=== PATIENT | male | born 1980 ===

== ENCOUNTER 2017-03-08 19:49 | Emergency (ER) | payer SELFPAY ==
[2017-03-08 20:31] VITALS: BP 120/70; PULSE 69; RESP 18; TEMP 97.1; O2SAT 96
[2017-03-08] MEDS: Iohexol 240 (50 ml) PO ONE (21:24)
[2017-03-08 21:34] LABS: BASO % 0.5 % (0.0-2.0); EOS # 0.1 K/uL (0.0-0.7); EOS % 1.4 % (0.0-4.0); HEMATOCRIT 47.2 % (35.0-51.0); LYMPH # 4.1 K/uL (1.0-4.3); LYMPH % 42.1 % (20.0-40.0); MEAN CELL VOLUME 86.5 fl (80.0-94.0); MEAN CORPUSCULAR HEMOGLOBIN 29.5 pg (27.0-31.0); MEAN CORPUSCULAR HGB CONC 34.1 g/dL (33.0-37.0); MEAN PLATELET VOLUME 7.1 fl (7.2-11.7); MONO # 0.9 K/uL (0.0-0.8); MONO % 9.4 % (0.0-10.0); NEUT # 4.5 K/uL (1.8-7.0); NEUT % 46.6 % (50.0-75.0); NRBC % 0.2 % (0.0-0.0); RED CELL DISTRIBUTION WIDTH 12.6 % (11.5-14.5); WHITE BLOOD COUNT 9.7 K/uL (4.8-10.8)
[2017-03-08 21:54] LABS: ALKALINE PHOSPHATASE 79 U/L (38-126); ALT/SGPT 81 U/L (21-72); AST/SGOT 49 U/L (17-59); BILIRUBIN,TOTAL 0.5 mg/dl (0.2-1.3); BLOOD UREA NITROGEN 10 mg/dl (9-20); CALCIUM 9.4 mg/dL (8.4-10.2); CARBON DIOXIDE 26 mmol/L (22-30); CHLORIDE 104 mmol/L (98-107); GFR AFRICAN-AMERICAN > 60; GLUCOSE,RANDOM 100 mg/dL (75-110); LIPASE 74 U/L (23-300); POTASSIUM 3.7 MMOL/L (3.6-5.0); SODIUM 143 mmol/l (132-148); TOTAL PROTEIN 8.5 G/DL (6.3-8.2)
[2017-03-08 21:55] LABS: ALB/GLOB RATIO 1.4 (1.0-2.1)
--- NOTE | 2017-03-08 22:27 | ED PDOC ---
HPI: Abdomen Time Seen by Provider: 03/08/17 20:39 Chief Complaint (Nursing): Abdominal Pain Chief Complaint (Provider): Abdominal Pain History Per: Patient History/Exam Limitations: no limitations Additional Complaint(s): 36 y/o male presents to the emergency department with a complaint of a right- sided abdominal pain for two weeks. Associated with decreased liquid and solid intake by mouth, and mild diarrhea. Reports he saw Dr. Corona a week ago who prescribed him Reglan and Pepcid with no improvement of symptoms. Denies vomiting, constipation, black or bloody stools, fever, chills, urinary symptoms , or radiation of pain elsewhere. Past Medical History Reviewed: Historical Data, Nursing Documentation, Vital Signs Vital Signs: Last Vital Signs Temp 97.1 F L 03/08/17 20:29 Pulse 69 03/08/17 20:29 Resp 18 03/08/17 20:29 BP 120/70 03/08/17 20:29 Pulse Ox 96 03/09/17 04:16 - Medical History PMH: No Chronic Diseases - Surgical History Surgical History: No Surg Hx - Family History Family History: States: Hypertension - Social History Current smoker - smoking cessation education provided: No Alcohol: None Drugs: Denies - Home Medications Home Medications: Ambulatory Orders Medication Instructions Recorded Metoclopramide [Reglan] 1 tab PO BID 03/08/17 Ranitidine HCl [Zantac] 1 tab PO BID 03/08/17 Docusate Sodium [Colace] 100 mg PO BID PRN #10 capsule 03/09/17 - Allergies Allergies/Adverse Reactions: Allergies Allergy/AdvReac Type Severity Reaction Status Date / Time No Known Allergies Allergy Unverified 03/08/17 18:02 Review of Systems ROS Statement: Except As Marked, All Systems Reviewed And Found Negative (As per HPI otherwise negative) Constitutional: Positive for: Other (Decreased liquid and solid intake by mouth) . Negative for: Fever, Chills Gastrointestinal: Positive for: Abdominal Pain (Right-sided), Diarrhea (Mild). Negative for: Vomiting, Constipation, Melena, Hematochezia Genitourinary Male: Negative for: Dysuria, Frequency, Incontinence, Hematuria Physical Exam - Reviewed Nursing Documentation Reviewed: Yes Vital Signs Reviewed: Yes - Physical Exam Appears: Positive for: Non-toxic, In Acute Distress Head Exam: Positive for: ATRAUMATIC, NORMOCEPHALIC Skin: Positive for: Warm, Dry Eye Exam: Positive for: EOMI, PERRL. Negative for: Scleral icterus ENT: Negative for: Pharyngeal Erythema, Tonsillar Exudate Neck: Positive for: Painless ROM, Supple Cardiovascular/Chest: Positive for: Regular Rate, Rhythm, Chest Non Tender. Negative for: Murmur Respiratory: Positive for: Normal Breath Sounds. Negative for: Wheezing Gastrointestinal/Abdominal: Positive for: Bowel Sounds, Soft, Tenderness (RIGHT sided abdominal tenderness at level of umbilicus). Negative for: Mass, Distended, Guarding, Rebound Back: Positive for: Normal Inspection. Negative for: Muscle Spasm Extremity: Positive for: Normal ROM. Negative for: Deformity Lymphatic: Negative for: Adenopathy Neurologic/Psych: Positive for: Alert. Negative for: Motor/Sensory Deficits - Laboratory Results Result Diagrams: 03/08/17 21:27 03/08/17 21:27 - ECG O2 Sat by Pulse Oximetry: 96 (RA) Pulse Ox Interpretation: Normal Medical Decision Making Medical Decision Making: Time: 2106 Initial impression: Right sided abdominal pain. Differential includes appendicitis, colitis, mesenteric adenitis, pancreatitis, and hepatitis Initial plan: --Abd Pelvis PO & IV Contrast T --Urine DIP --Dextrose 1L IV --Iohexol 50 ml --Reevaluation Scribe Attestation: Documented by Marsha Cheema, acting as a scribe for Dayna Dee MD. Provider Scribe Attestation: All medical record entries made by the Scribe were at my direction and personally dictated by me. I have reviewed the chart and agree that the record accurately reflects my personal performance of the history, physical exam, medical decision making, and the department course for this patient. I have also personally directed, reviewed, and agree with the discharge instructions and disposition. Disposition - Clinical Impression Clinical Impression: Abdominal pain - Disposition Disposition: Transfer of Care Disposition Time: 00:00 Condition: IMPROVED Additional Instructions: follow up with your primary doctor in 1-2 days return to the ED with any worsening or concerning symptoms Prescriptions: Docusate Sodium [Colace] 100 mg PO BID PRN #10 capsule PRN Reason: Constipation Print Language: SENEGALESE Patient Signed Over To: Kingsley Johnson Y Handoff Comments: Pending ER workup, reassessment and final ER disposition
[2017-03-08] MEDS ORDERED: Iohexol 300 100 ML IJ ONE (23:31)
[2017-03-08] MEDS ORDERED: Sodium Chloride 0.9% 50 ML IV ONE (23:31)
--- NOTE | 2017-03-09 00:06 | ED PDOC ---
- Laboratory Results Result Diagrams: 03/08/17 21:27 03/08/17 21:27 - ECG O2 Sat by Pulse Oximetry: 96 (RA) Medical Decision Making Medical Decision Makin Patient signed out to me from Dr. Dee pending CT. 0028 [address] FINDINGS Lower thorax: No acute findings. ABDOMEN: Liver: Unremarkable. No mass. Gallbladder and bile ducts: Unremarkable. No calcified stones. No ductal dilation. Pancreas: Unremarkable. No mass. No ductal dilation. Spleen: Unremarkable. No splenomegaly. Adrenals: Unremarkable. No mass. Kidneys and ureters: Unremarkable. No solid mass. No hydronephrosis. Stomach and bowel: Moderate fecal retention in the colon consistent with constipation. No obstruction. No mucosal thickening. Appendix: Normal appendix. PELVIS: Bladder: Unremarkable. No mass. Reproductive: Unremarkable as visualized. ABDOMEN and PELVIS: Intraperitoneal space: Unremarkable. No free air. No significant fluid collection. Bones/joints: No acute fracture. No dislocation. Soft tissues: Unremarkable. Vasculature: Unremarkable. No abdominal aortic aneurysm. Lymph nodes: Unremarkable. No enlarged lymph nodes. IMPRESSION: Moderate fecal retention in the colon consistent with constipation. pt made aware of results and given rx colase and instructed to follow up [facility] pcp Scribe Attestation: Documented by Any Gooden acting as a scribe for Kingsley Johnson MD. Scribe Attestation: All medical record entries made by the Scribe were at my direction and personally dictated by me. I have reviewed the chart and agree that the record accurately reflects my personal performance of the history, physical exam, medical decision making, and the department course for this patient. I have also personally directed, reviewed, and agree with the discharge instructions and disposition. Disposition Counseled Patient/Family Regarding: Studies Performed, Diagnosis, Need For Followup - Clinical Impression Clinical Impression: Constipation - POA Present On Arrival: None - Disposition Disposition: Routine/Home Disposition Time: 01:00 Condition: IMPROVED Additional Instructions: follow up with your primary doctor in 1-2 days return to the ED with any worsening or concerning symptoms Prescriptions: Docusate Sodium [Colace] 100 mg PO BID PRN #10 capsule PRN Reason: Constipation Instructions: Constipation (ED) Forms: [employer] (Jamaican) Print Language: MACEDONIAN
--- NOTE | 2017-03-09 09:58 | CT ---
PROCEDURE: CT Abdomen and Pelvis with contrast HISTORY: R sided abdominal pain COMPARISON: None. TECHNIQUE: Contrast dose: 95 mL Omnipaque 300 Radiation dose: Total exam DLP = 694 mGy-cm. This CT exam was performed using one or more of the following dose reduction techniques: Automated exposure control, adjustment of the mA and/or kV according to patient size, and/or use of iterative reconstruction technique. FINDINGS: LOWER THORAX: Unremarkable. LIVER: Unremarkable. No gross lesion or ductal dilatation. GALLBLADDER AND BILE DUCTS: Unremarkable. PANCREAS: Unremarkable. No gross lesion or ductal dilatation. SPLEEN: Unremarkable. ADRENALS: Unremarkable. No mass. KIDNEYS AND URETERS: Unremarkable. No hydronephrosis. No solid mass. VASCULATURE: Unremarkable. No aortic aneurysm. BOWEL: Moderate stool retention. No obstruction. No gross mural thickening. APPENDIX: Normal appendix. PERITONEUM: Unremarkable. No free fluid. No free air. LYMPH NODES: Unremarkable. No enlarged lymph nodes. BLADDER: Unremarkable. REPRODUCTIVE: Unremarkable. BONES: Multiple benign-appearing bone islands in each hip OTHER FINDINGS: None. IMPRESSION: Moderate stool retention. Otherwise unremarkable exam
== END 2017-03-09 01:38 | disposition home or self-care (01) ==
LOC: H.ER 19:49
DX: K59.00 Constipation, unspecified (principal)
CPT/HCPCS: 74177; 80053; 83690; 85025; 99281; J7042; Q9966; Q9967

== ENCOUNTER 2017-05-25 18:01 | Emergency (ER) | payer OTHER ==
[2017-05-25 18:15] VITALS: RESP 18; TEMP 97.4
--- NOTE | 2017-05-25 18:59 | ED PDOC ---
HPI: General Adult Time Seen by Provider: 05/25/17 18:30 Chief Complaint (Nursing): Chest Pain History Per: Patient (Palpitations assoc with chest pain and dizziness since this AM. No LOC. Also c/o right sided abd and flank pain x 2 weeks. Seen here and had CT abd. Also had outpt abd US. No vomiting or diarrhea. No fever.) Past Medical History Vital Signs: Last Vital Signs Temp 97.4 F L 05/25/17 18:12 Pulse 83 05/25/17 18:12 Resp 18 05/25/17 18:12 BP 119/69 05/25/17 18:12 Pulse Ox 99 05/25/17 22:13 - Medical History PMH: No Chronic Diseases - Family History Family History: States: Hypertension - Home Medications Home Medications: Ambulatory Orders Medication Instructions Recorded Metoclopramide [Reglan] 1 tab PO BID 03/08/17 Ranitidine HCl [Zantac] 1 tab PO BID 03/08/17 Docusate Sodium [Colace] 100 mg PO BID PRN #10 capsule 03/09/17 Non-Formulary 1 ea .ROUTE Q6 #1 ea 05/25/17 Non-Formulary 1 ea .ROUTE Q6 #1 ea 05/25/17 Pantoprazole Sodium [Protonix] 40 mg PO DAILY #30 tablet. 05/25/17 - Allergies Allergies/Adverse Reactions: Allergies Allergy/AdvReac Type Severity Reaction Status Date / Time No Known Allergies Allergy Unverified 05/25/17 18:15 Review of Systems ROS Statement: Except As Marked, All Systems Reviewed And Found Negative Cardiovascular: Positive for: Chest Pain, Palpitations Gastrointestinal: Positive for: Abdominal Pain Neurological: Positive for: Dizziness Physical Exam - Reviewed Nursing Documentation Reviewed: Yes Vital Signs Reviewed: Yes - Physical Exam Appears: Positive for: Non-toxic, No Acute Distress Head Exam: Positive for: ATRAUMATIC, NORMAL INSPECTION, NORMOCEPHALIC Skin: Positive for: Normal Color, Warm, DRY Eye Exam: Positive for: EOMI, Normal appearance, PERRL ENT: Positive for: Normal ENT Inspection Neck: Positive for: Normal, Painless ROM Cardiovascular/Chest: Positive for: Regular Rate, Rhythm. Negative for: Chest Non Tender Respiratory: Positive for: CNT, Normal Breath Sounds Gastrointestinal/Abdominal: Positive for: Bowel Sounds, Soft. Negative for: Tenderness Back: Positive for: Normal Inspection Extremity: Positive for: Normal ROM Neurologic/Psych: Positive for: Alert, Oriented. Negative for: Motor/Sensory Deficits - Laboratory Results Result Diagrams: 05/25/17 19:30 05/25/17 19:30 - ECG O2 Sat by Pulse Oximetry: 99 Disposition - Clinical Impression Clinical Impression: Chest pain - Patient ED Disposition Is Patient to be Admitted: No - Disposition Referrals: Jd Corona MD [Staff Provider] - Disposition: Routine/Home Disposition Time: 22:28 Condition: FAIR Prescriptions: Non-Formulary 1 ea .ROUTE Q6 #1 ea Non-Formulary 1 ea .ROUTE Q6 #1 ea Pantoprazole Sodium [Protonix] 40 mg PO DAILY #30 tablet. Instructions: Chest Pain (ED) Forms: [facility] (Pashto) Print Language: TAIWANESE
[2017-05-25 19:45] LABS: BASO % 0.3 % (0.0-2.0); EOS % 0.5 % (0.0-4.0); HEMOGLOBIN 14.8 g/dL (12.0-18.0); LYMPH # 2.2 K/uL (1.0-4.3); LYMPH % 32.9 % (20.0-40.0); MEAN CORPUSCULAR HEMOGLOBIN 29.2 pg (27.0-31.0); MEAN CORPUSCULAR HGB CONC 33.5 g/dL (33.0-37.0); MEAN PLATELET VOLUME 8.1 fl (7.2-11.7); MONO % 14.3 % (0.0-10.0); NEUT # 3.5 K/uL (1.8-7.0); NRBC % 0.3 % (0.0-0.0); RBC 5.07 Mil/uL (4.40-5.90); WHITE BLOOD COUNT 6.8 K/uL (4.8-10.8)
[2017-05-25 19:49] LABS: ALB/GLOB RATIO 1.4 (1.0-2.1); ALBUMIN 4.3 g/dL (3.5-5.0); ALT/SGPT 66 U/L (21-72); AST/SGOT 46 U/L (17-59); BLOOD UREA NITROGEN 13 mg/dl (9-20); GFR AFRICAN-AMERICAN > 60; GFR NON-AFRICAN AMERICAN > 60
[2017-05-25 22:19] LABS: BARBITURATES, UR NEGATIVE (NEGATIVE); BENZODIAZEPINES, UR NEGATIVE (NEGATIVE); OPIATES, UR NEGATIVE (NEGATIVE); PHENCYCLIDINE, UR NEGATIVE (NEGATIVE)
[2017-05-25 22:41] VITALS: BP 113/71; PULSE 69; O2SAT 94
--- NOTE | 2017-05-26 11:14 | RAD ---
HISTORY: Palpitations. COMPARISON: No prior. TECHNIQUE: Chest PA and lateral FINDINGS: LUNGS: No active pulmonary disease. Incidental finding(s): Calcified granuloma right upper lobe PLEURA: No significant pleural effusion identified. No pneumothorax apparent. CARDIOVASCULAR: Normal. OSSEOUS STRUCTURES: No significant abnormalities. VISUALIZED UPPER ABDOMEN: Normal. OTHER FINDINGS: None. IMPRESSION: No active disease.
--- NOTE | 2017-05-26 11:24 | CARD ---
APPROVED REPORT EKG Measurement Heart [id number] <Conclusion> Normal sinus rhythm Normal ECG
== END 2017-05-25 22:41 | disposition home or self-care (01) ==
LOC: H.ER 18:01
DX: R07.89 Other chest pain (principal); R42 Dizziness and giddiness

== ENCOUNTER 2017-05-27 20:19 | Emergency (ER) | payer OTHER ==
[2017-05-27 20:28] VITALS: BMI 29.4
[2017-05-27 20:32] VITALS: BP 122/76; PULSE 63; RESP 18; TEMP 98.1; O2SAT 96
--- NOTE | 2017-05-28 00:55 | ED PDOC ---
HPI: General Adult Time Seen by Provider: 05/28/17 00:23 Chief Complaint (Nursing): Chest Pain Chief Complaint (Provider): Anxiety Onset/Duration Of Symptoms: Days Additional Complaint(s): No PMhx p/w nervousness and anxiety, pt. states he came 2 days ago for similar but wasn't prescribed medication for anxiety. States that he feels very nervous around social situations, but denies SI/HI. States he does not feel as nervous now, states that since being in ER he has been able to calm himself down. No CP currently, no SOB or other symptoms. Past Medical History Reviewed: Historical Data, Nursing Documentation, Vital Signs Vital Signs: Last Vital Signs Temp 98.1 F 05/27/17 20:29 Pulse 63 05/27/17 20:29 Resp 18 05/27/17 20:29 BP 122/76 05/27/17 20:29 Pulse Ox 96 05/27/17 20:29 - Family History Family History: States: Hypertension - Home Medications Home Medications: Ambulatory Orders Medication Instructions Recorded Metoclopramide [Reglan] 1 tab PO BID 03/08/17 Ranitidine HCl [Zantac] 1 tab PO BID 03/08/17 Docusate Sodium [Colace] 100 mg PO BID PRN #10 capsule 03/09/17 Non-Formulary 1 ea .ROUTE Q6 #1 ea 05/25/17 Non-Formulary 1 ea .ROUTE Q6 #1 ea 05/25/17 Pantoprazole Sodium [Protonix] 40 mg PO DAILY #30 tablet. 05/25/17 - Allergies Allergies/Adverse Reactions: Allergies Allergy/AdvReac Type Severity Reaction Status Date / Time No Known Allergies Allergy Unverified 05/27/17 20:28 Review of Systems ROS Statement: Except As Marked, All Systems Reviewed And Found Negative Physical Exam - Reviewed Nursing Documentation Reviewed: Yes Vital Signs Reviewed: Yes - Physical Exam Appears: Positive for: Well, Non-toxic, No Acute Distress Head Exam: Positive for: ATRAUMATIC, NORMAL INSPECTION, NORMOCEPHALIC Skin: Positive for: Normal Color, Warm, DRY Eye Exam: Positive for: EOMI, Normal appearance, PERRL ENT: Positive for: Normal ENT Inspection Neck: Positive for: Normal, Painless ROM Cardiovascular/Chest: Positive for: Regular Rate, Rhythm Respiratory: Positive for: CNT, Normal Breath Sounds Gastrointestinal/Abdominal: Positive for: Normal Exam, Bowel Sounds, Soft Back: Positive for: Normal Inspection Extremity: Positive for: Normal ROM Neurologic/Psych: Positive for: Alert, Oriented - ECG O2 Sat by Pulse Oximetry: 96 Medical Decision Making Medical Decision Making: Patient with normal EKG at NSR, rate 73. No ST T wave changes. Had caridac workup 2 days ago. Patient requesting prescription for anxioytics. Told patient he must first see psychiatry for evaluation. Offered one pill of xanax now. Patient agreeable. Will followup with psych. Return precautions discussed. Disposition - Clinical Impression Clinical Impression: Anxiety - Disposition [facility]errals[facility] [[facility]] Disposition: Routine/Home Disposition Time: 00:55 Condition: GOOD Instructions: Anxiety (ED) Print Language: URDU
== END 2017-05-28 01:19 | disposition home or self-care (01) ==
LOC: H.ER 20:19
DX: F41.9 Anxiety disorder, unspecified (principal)

== ENCOUNTER 2018-05-31 20:42 | Emergency (ER) | payer OTHER, SELFPAY ==
[2018-05-31 20:43] VITALS: BMI 26.9
[2018-05-31 21:27] VITALS: TEMP 99.4
--- NOTE | 2018-05-31 22:35 | ED PDOC ---
Syncope/Near Syncope/Dizziness Time Seen by Provider: 05/31/18 21:27 Chief Complaint (Nursing): Dizziness/Lightheaded Chief Complaint (Provider): Dizziness/Lightheaded History Per: Patient History/Exam Limitations: no limitations Onset/Duration Of Symptoms: Days Additional Complaint(s): Elmer Gotti is a 38 year old male with no past medical history, who presents to the emergency department complaining of dizziness and palpitations, onset 1700 today. Patient states that she suddenly developed acute dizziness, palpitations, numbness and tingling in extremities. He states that he does have increased levels of stress and further reports to have some chest pain. Patient also states that he has had some nausea and broke into a sweat earlier but has improved since onset. PMD: Jd Corona Past Medical History Reviewed: Historical Data, Nursing Documentation, Vital Signs Vital Signs: Last Vital Signs Temp 99.4 F 05/31/18 21:24 Pulse 93 H 05/31/18 21:24 Resp 16 05/31/18 21:24 BP 137/77 05/31/18 21:24 Pulse Ox 100 05/31/18 21:24 - Medical History PMH: No Chronic Diseases - Surgical History Surgical History: No Surg Hx - Family History Family History: States: Hypertension - Social History Current smoker - smoking cessation education provided: No Alcohol: None Drugs: Denies - Home Medications Home Medications: Ambulatory Orders Medication Instructions Recorded Metoclopramide [Reglan] 1 tab PO BID 03/08/17 Ranitidine HCl [Zantac] 1 tab PO BID 03/08/17 Docusate Sodium [Colace] 100 mg PO BID PRN #10 capsule 03/09/17 Non-Formulary 1 ea .ROUTE Q6 #1 ea 05/25/17 Non-Formulary 1 ea .ROUTE Q6 #1 ea 05/25/17 Pantoprazole Sodium [Protonix] 40 mg PO DAILY #30 tablet. 05/25/17 - Allergies Allergies/Adverse Reactions: Allergies Allergy/AdvReac Type Severity Reaction Status Date / Time No Known Allergies Allergy Verified 05/31/18 21:24 Review of Systems ROS Statement: Except As Marked, All Systems Reviewed And Found Negative Constitutional: Positive for: Sweats Cardiovascular: Positive for: Chest Pain, Palpitations Gastrointestinal: Positive for: Nausea Neurological: Positive for: Numbness, Dizziness Physical Exam - Reviewed Nursing Documentation Reviewed: Yes Vital Signs Reviewed: Yes - Physical Exam Appears: Positive for: Non-toxic, No Acute Distress Head Exam: Positive for: ATRAUMATIC, NORMOCEPHALIC Skin: Positive for: Normal Color, Warm, Dry Eye Exam: Positive for: Normal appearance, EOMI, PERRL ENT: Positive for: Normal ENT Inspection Neck: Positive for: Normal, Painless ROM, Supple Cardiovascular/Chest: Positive for: Regular Rate, Rhythm. Negative for: Murmur Respiratory: Positive for: Normal Breath Sounds. Negative for: Respiratory Distress Gastrointestinal/Abdominal: Positive for: Normal Exam, Soft. Negative for: Tenderness Back: Positive for: Normal Inspection. Negative for: L CVA Tenderness, R CVA T enderness, Vertebral Tenderness Extremity: Positive for: Normal ROM. Negative for: Pedal Edema, Deformity Neurologic/Psych: Positive for: Alert, Oriented. Negative for: Motor/Sensory Deficits - Laboratory Results Result Diagrams: 05/31/18 22:46 05/31/18 22:46 - ECG O2 Sat by Pulse Oximetry: 100 (RA) Pulse Ox Interpretation: Normal Medical Decision Making Medical Decision Making: Time: 2120 Impression: 38 year old male with nonspecific palpitation and dizziness, likely secondary to acute stress. Plan: --EKG --CMP --Magnesium --Troponin I --TSH --Urine drug screen --Cbc with differential --Iv insertion 00:12 Labs reviewed no clinically significant abnormalities. Patient is stable for discharge. Diagnosis is anxiety. Scribe Attestation: Documented by Arnaldo Monroy, acting as a scribe for Kelvin Ferrer MD. Provider Scribe Attestation: All medical record entries made by the Scribe were at my direction and personally dictated by me. I have reviewed the chart and agree that the record accurately reflects my personal performance of the history, physical exam, medical decision making, and the department course for this patient. I have also personally directed, reviewed, and agree with the discharge instructions and disposition. Disposition - Clinical Impression Clinical Impression: Anxiety - Disposition Referrals: [facility] [Outside] Disposition Time: 00:12 Condition: STABLE Additional Instructions: SAPNA GOTTI, thank you for letting us take care of you today. Your provider was Kelvin Ferrer MD and you were treated for DIZZINESS. The emergency medical care you received today was directed at your acute symptoms. If you were prescribed any medication, please fill it and take as directed. It may take several days for your symptoms to resolve. Return to the Emergency Department if your symptoms worsen, do not improve, or if you have any other problems. Please contact your doctor or call one of the physicians/clinics you have been referred to that are listed on the Patient Visit Information form that is included in your discharge packet. Bring any paperwork you were given at discharge with you along with any medications you are taking to your follow up visit. Our treatment cannot replace ongoing medical care by a primary care provider outside of the emergency department. Thank you for allowing the [facility] team to be part of your care today. If you had an X-Ray or CT scan: A Radiologist will review the ED reading if any change in treatment is needed we will contact you. If you had a blood, urine, or wound culture: It will take several days for the results, if any change in treatment is needed we will contact you. If you had an STI test: It will take 48 hours for the results. Please call after 1 week if you have not heard back. Instructions: Anxiety, Adult (DC) Forms: [employer] (Telugu) Print Language: TANZANIAN
[2018-05-31 22:53] LABS: BASO % 0.5 % (0.0-2.0); EOS # 0.1 K/uL (0.0-0.7); EOS % 0.9 % (0.0-4.0); HEMOGLOBIN 15.7 g/dL (12.0-18.0); LYMPH # 2.2 K/uL (1.0-4.3); LYMPH % 28.6 % (20.0-40.0); MEAN CELL VOLUME 85.2 fl (80.0-94.0); MEAN CORPUSCULAR HEMOGLOBIN 29.6 pg (27.0-31.0); MEAN CORPUSCULAR HGB CONC 34.7 g/dL (33.0-37.0); MEAN PLATELET VOLUME 7.3 fl (7.2-11.7); MONO # 0.7 K/uL (0.0-0.8); MONO % 8.6 % (0.0-10.0); NEUT # 4.7 K/uL (1.8-7.0); NEUT % 61.4 % (50.0-75.0); NRBC % 0.4 % (0.0-0.0); RBC 5.3 Mil/uL (4.40-5.90); RED CELL DISTRIBUTION WIDTH 12.8 % (11.5-14.5); WHITE BLOOD COUNT 7.7 K/uL (4.8-10.8)
[2018-05-31 23:11] LABS: ALB/GLOB RATIO 1.4 (1.0-2.1); ALBUMIN 4.4 g/dL (3.5-5.0); ALT/SGPT 43 U/L (21-72); AST/SGOT 42 U/L (17-59); BLOOD UREA NITROGEN 13 mg/dl (9-20); CALCIUM 9.5 mg/dL (8.4-10.2); GFR NON-AFRICAN AMERICAN > 60
[2018-06-01 01:00] VITALS: BP 115/59; PULSE 70; RESP 18; O2SAT 96
[2018-06-01 03:16] LABS: BARBITURATES, UR NEGATIVE (NEGATIVE); BENZODIAZEPINES, UR NEGATIVE (NEGATIVE); OPIATES, UR NEGATIVE (NEGATIVE); PHENCYCLIDINE, UR NEGATIVE (NEGATIVE)
--- NOTE | 2018-06-01 10:17 | CARD ---
APPROVED REPORT Date of service: 05/31/2018 EKG Measurement Heart [id number] <Conclusion> Normal sinus rhythm Normal ECG
== END 2018-06-01 00:45 | disposition home or self-care (01) ==
LOC: H.ER 20:42
DX: F41.9 Anxiety disorder, unspecified (principal)

== ENCOUNTER 2018-08-09 08:13 | Emergency (ER) | payer SELFPAY ==
[2018-08-09 08:19] VITALS: BP 137/77; PULSE 78; RESP 18; TEMP 98.7; O2SAT 99; BMI 32.5
[2018-08-09] MEDS ORDERED: Fluorescein 1 mg Ophthalmic Strip ONE (08:58)
[2018-08-09] MEDS ORDERED: Tetracaine 0.5% Ophth 2 ML BOTTLE ONE (08:58)
--- NOTE | 2018-08-09 09:08 | ED PDOC ---
HPI: Eye Injury/Pain Time Seen by Provider: 08/09/18 08:24 Chief Complaint (Nursing): Eye Problem Chief Complaint (Provider): Eye Problem History Per: Patient History/Exam Limitations: no limitations Onset/Duration Of Symptoms: Days (x1) Current Symptoms Are (Timing): Still Present Quality: "Pain" Associated Symptoms: FB Sensation, Itching Additional Complaint(s): 38 year old male with no past medical history who is presenting to the ED for evaluation of right eye pain and burning ongoing since yesterday evening. Smith warren states that symptoms started all of a sudden yesterday after work and admits that he feels like there is a ball in his right eye. He reports itching and mild pain but denies any wearing glasses or contacts. 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 Of note, patient states that his last known tetanus was in 2009. He offers no other medical complaints at this time. PMD: Dr. martins Past Medical History Reviewed: Historical Data, Nursing Documentation, Vital Signs Vital Signs: Last Vital Signs Temp 98.7 F 08/09/18 08:19 Pulse 78 08/09/18 08:19 Resp 18 08/09/18 08:19 BP 137/77 08/09/18 08:19 Pulse Ox 99 08/09/18 08:19 - Medical History PMH: No Chronic Diseases - Surgical History Surgical History: No Surg Hx - Family History Family History: States: Hypertension - Social History Current smoker - smoking cessation education provided: No Alcohol: None Drugs: Denies - Immunization History Hx Tetanus Toxoid Vaccination: Yes (2011) - Home Medications Home Medications: Ambulatory Orders Medication Instructions Recorded Metoclopramide [Reglan] 1 tab PO BID 03/08/17 Ranitidine HCl [Zantac] 1 tab PO BID 03/08/17 Docusate Sodium [Colace] 100 mg PO BID PRN #10 capsule 03/09/17 Non-Formulary 1 ea .ROUTE Q6 #1 ea 05/25/17 Non-Formulary 1 ea .ROUTE Q6 #1 ea 05/25/17 Pantoprazole Sodium [Protonix] 40 mg PO DAILY #30 tablet. 05/25/17 - Allergies Allergies/Adverse Reactions: Allergies Allergy/AdvReac Type Severity Reaction Status Date / Time No Known Allergies Allergy Verified 05/31/18 21:24 Review of Systems ROS Statement: Except As Marked, All Systems Reviewed And Found Negative Eyes: Positive for: Pain, Other (foreign body sensation) Physical Exam - Reviewed Nursing Documentation Reviewed: Yes Vital Signs Reviewed: Yes - Physical Exam Appears: Positive for: Non-toxic, No Acute Distress Head Exam: Positive for: ATRAUMATIC, NORMAL INSPECTION, NORMOCEPHALIC Skin: Positive for: Normal Color, Warm, DRY Eye Exam: Positive for: EOMI, PERRL, Conjunctival injection, Other (punctate area with questionable foreign body at 8 o'clock to right cornea ) ENT: Positive for: Normal ENT Inspection Extremity: Positive for: Normal ROM. Negative for: Deformity, Swelling Neurological/Psych: Positive for: Awake, Alert, Normal Tone. Negative for: Motor/Sensory Deficits - ECG O2 Sat by Pulse Oximetry: 99 (RA) Pulse Ox Interpretation: Normal Medical Decision Making Medical Decision Making: Time: 9:05 Plan: --fluorescein --Ophthalmology Consult 09:[address] Garcia, requests patient come to his office after discharge. Scribe Attestation: Documented by China Winters, acting as a scribe for Aurea Andersen MD. Provider Scribe Attestation: All medical record entries made by the Scribe were at my direction and persona dineshy dictated by me. I have reviewed the chart and agree that the record accurately reflects my personal performance of the history, physical exam, medical decision making, and the department course for this patient. I have also personally directed, reviewed, and agree with the discharge instructions and disposition. Disposition - Clinical Impression Clinical Impression: Foreign body in eye - Disposition Referrals: Gilberto Garcia MD [Staff Provider] - Disposition: Routine/Home Disposition Time: 09:47 Condition: STABLE Additional Instructions: GO DIRECTLY TO DR. GARCIA'S OFFICE AFTER DISCHARGE! Instructions: Foreign Body in Eye Forms: [facility] (Bhutanese), [facility] ED School/Work Excuse Print Language: [id number]
[2018-08-09] MEDS ORDERED: Fluorescein 1 mg Ophthalmic Strip OD STA (09:49)
[2018-08-09] MEDS ORDERED: Tetracaine 0.5% Ophth 2 ML BOTTLE OD STA (09:49)
== END 2018-08-09 09:54 | disposition home or self-care (01) ==
LOC: H.ER 08:13
DX: H02.813 Retained foreign body in right eye, unspecified eyelid (principal)